=== PATIENT | female | born 1955 | race Caucasian/White ===

== ENCOUNTER 2016-10-30 08:39 | Emergency (ER) | payer BC ==
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
[2016-10-30 09:14] VITALS: BP 144/92
== END 2016-10-30 09:15 | disposition home or self-care (01) ==
LOC: UCCORT 08:39
DX: J32.9 Chronic sinusitis, unspecified (principal); E07.9 Disorder of thyroid, unspecified; Z88.5 Allergy status to narcotic agent; Z87.891 Personal history of nicotine dependence
CPT/HCPCS: 99212; G0463